=== PATIENT | male | born 1970 | race Caucasian/White ===

== ENCOUNTER 2021-03-31 14:13 | Emergency (ER) | payer OTHER ==
[~2021-03-31] VITALS: Ht 167.6 cm; Wt 98.0 kg
[2021-03-31 15:07] VITALS: BP 156/94
[2021-03-31] MEDS ORDERED: ORPH100T2 PO (17:15)
[2021-03-31] MEDS ORDERED: ketorolac trometh inj. 60 MG/2 ML VIAL IM ONE (17:15)
[2021-03-31] MEDS ORDERED: NAPR-56 PO (17:15)
== END 2021-03-31 18:21 | disposition home or self-care (01) ==
LOC: ER 14:14
DX: S46.911A Strain of unspecified muscle, fascia and tendon at shoulder and upper arm level, right arm, initial encounter (principal); M62.838 Other muscle spasm; F17.200 Nicotine dependence, unspecified, uncomplicated; Z79.899 Other long term (current) drug therapy; V89.2XXA Person injured in unspecified motor-vehicle accident, traffic, initial encounter; Y93.89 Activity, other specified; Y92.89 Other specified places as the place of occurrence of the external cause; Y99.8 Other external cause status
CPT/HCPCS: 96372; 99283; J1885